=== PATIENT | female | born 1960 | race Caucasian/White ===

== ENCOUNTER 2020-11-03 05:31 | Day surgery (SDCO) | payer OTHER ==
[~2020-11-03 05:31] MED LIST: AMBIEN5 MG PO; ATENOLOL25 MG PO; ATIVAN0.5 MG PO; BREO ELLIPTA 11 EACH INH; CARDIZEM CD120 MG PO; CELEXA20 MG PO; CERTAGEN1 EACH PO; CHLOR-TRIMETON4 MG PO; ELIQUIS2.5 MG PO; FLEXERIL5 MG PO; HCTZ25 MG PO; LIDODERM 5%1 EACH TD; LIPITOR20 MG PO; LORTAB 10 MG-3473 ML PO; NEURONTIN400 MG PO; NORCO 10-325 T1 EACH PO; PROTONIX 40MG T40 MG PO; SINGULAIR10 MG PO; SUDAFED30 MG PO; SYMBICORT 80-10.2 GM INH; TUMS200 MG PO; VENTOLIN (2.5 MG/3 M INH; VENTOLIN HFA IN18 GM INH; VITAMIN D5000 UNI1 PO; ZOLPIDEM TARTRAT5 MG PO
[2020-11-03] MEDS ORDERED: VENTOLIN HFA IN18 GM INH (05:57)
--- NOTE | 2020-11-03 13:23 | NUR ---
PT. REQUESTS OUTPT APPT AT [facility]. [phone]. FIRST APPT. IS @ 3:00 P.M. PT IS TO ARRIVE AT 2:45 P.M. SHE IS TO BRING A LIST OF HER MEDS AND INSURANCE CARDS.
--- NOTE | 2020-11-03 15:19 | NUR ---
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 SHE REQUESTS [facility]. FIRST APPT. IS 11/05/20 @ 3:00 P.M. ARRIVED AT 2:45 P.M. PT.W ILL NEED A LIST OF MEDICATIONS AND INSURANCE CARDS.
[2020-11-04 07:06] LABS: BASOPHIL 0.1 % (0-2); EOSINOPHIL 0 % (0-5); HCT 26.6 % (37.0-47.0); HGB 8.7 g/dl (12.5-16.0); LYMPHOCYTE 9.9 % (15-48); MCH 30.5 pg (25.0-31.0); MCHC 32.7 g/dL (32.0-36.0); MCV 93.3 fL (78.0-100.0); MPV 9.5 fL (6.0-9.5); NEUTROPHIL 75.7 % (41-80); NRBC 0; PLT 237 K/uL (150-400); RBC 2.85 M/uL (4.20-5.40); RDW 12.1 % (11.5-14.0); WBC 7.7 K/uL (4.0-10.5)
[2020-11-04 07:35] LABS: CREATININE 0.69 mg/dL (0.51-0.95); POTASSIUM 3.6 mmol/L (3.5-5.1)
[2020-11-04] MEDS ORDERED: FEOSOL325 MG PO (08:22)
[2020-11-04] MEDS ORDERED: XARELTO10 MG PO (08:22)
[2020-11-04] MEDS ORDERED: OXYCODONE-ACET1 EAC1 PO (08:42)
--- NOTE | 2020-11-04 12:43 | NUR ---
CONOR ANGULO AT [facility]. PT. HAS A ZERO COPAY FOR XARELTO. ADVISED PT.
--- NOTE | 2020-11-04 12:48 | NUR ---
IV REMOVED PRIOR TO LEAVING. PAIN MEDICATION AND XARELTO GIVEN PRIOR TO D/C. DISCUSSSED DISCHARGE INSTRUCTIONS WITH PATIENT. HOME WITH AND PT WILL HAVE OUTPATIENT THERAPY
== END 2020-11-04 12:20 | disposition home or self-care (01) ==
LOC: FSDC 05:31 → FMS 09:39
PROVIDERS: ADMIT Legal Medicine
DX: M16.11 Unilateral primary osteoarthritis, right hip (principal); J44.9 Chronic obstructive pulmonary disease, unspecified; K21.9 Gastro-esophageal reflux disease without esophagitis; I10 Essential (primary) hypertension; F41.8 Other specified anxiety disorders; Z20.822 Contact with and (suspected) exposure to COVID-19; Z98.890 Other specified postprocedural states; Z96.642 Presence of left artificial hip joint; Z98.51 Tubal ligation status; Z88.6 Allergy status to analgesic agent; Z88.1 Allergy status to other antibiotic agents; Z88.2 Allergy status to sulfonamides; Z88.8 Allergy status to other drugs, medicaments and biological substances; Z91.048 Other nonmedicinal substance allergy status
CPT/HCPCS: 36415; 73501; 76000; 80048; 85025; 86850; 86900; 86901; 94010; 94640; 94760; 94762; 97110; 97162; 97166; 97530-GP; 97535; C1776; G0378; J0171; J0697; J1100; J1170; J1885; J2250; J2270; J2405; J2704; J2795; J3010; J7120; U0002